=== PATIENT | male | born 1955 | race African-American/Black ===

== ENCOUNTER 2016-10-01 10:26 | Emergency (ER) | payer SELFPAY ==
[~2016-10-01] VITALS: Ht 182.9 cm; Wt 91.2 kg
[~2016-10-01 10:26] MED LIST: ABILIFY2 MG PO; AZITHROMYCIN250 MG ORAL; IBUPROFEN400 MG PO; IBUPROFEN800 MG PO; NIZORAL 2% C1 APPLIC TOPIC; SUDAFED60 MG ORAL
[2016-10-01 12:03] VITALS: BP 157/85
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
== END 2016-10-01 12:03 | disposition home or self-care (01) ==
LOC: EMR 12:00
DX: J34.89 Other specified disorders of nose and nasal sinuses (principal); R51 Headache; M25.512 Pain in left shoulder; Z88.6 Allergy status to analgesic agent; Z88.1 Allergy status to other antibiotic agents
CPT/HCPCS: 99282